=== PATIENT | male | born 1980 | race Caucasian/White ===

== ENCOUNTER 2021-06-26 12:19 | Emergency (ER) | payer MEDICAID, SELFPAY ==
[~2021-06-26] VITALS: Ht 175.3 cm; Wt 104.3 kg
[2021-06-26 12:40] VITALS: BP_SYST 127
--- NOTE | 2021-06-26 12:40 | NUR ---
Placed in room 4 . Placed on security monitor, blood pressure machine and pulse oximeter. To gown for exam. Side rails up. Report given to ОЛЬГА ELDRIDEG.
--- NOTE | 2021-06-26 13:11 | NUR ---
DR BERMUDEZ AT BEDSIDE REMOVED G TUBE SITE WNL BANDAID TO SITE
--- NOTE | 2021-06-26 13:16 | NUR ---
Patient given written and verbal discharge instructions and verbalizes understanding. KRISTAL BERMUDEZ MD discussed with patient the results and treatment provided. Patient in stable condition. ID arm band removed. Patient educated on pain management and to follow up with PMD. Pain Scale 0. Opportunity for questions provided and answered. Medication side effect fact sheet provided.
== END 2021-06-26 13:16 | disposition home or self-care (01) ==
LOC: SED 12:19
DX: Z43.1 Encounter for attention to gastrostomy (principal)
CPT/HCPCS: 99281